=== PATIENT | female | born 1990 | race Caucasian/White ===

== ENCOUNTER 2025-02-02 15:41 | Emergency (ER) | payer SELFPAY ==
[~2025-02-02] VITALS: Ht 165.1 cm; Wt 91.0 kg
[2025-02-02 15:49] VITALS: O2SAT 98
[2025-02-02 17:00] LABS: COLOR URINE YELLOW (YELLOW); GLUCOSE URINE NEGATIVE (NEGATIVE); KETONES URINE TRACE (NEGATIVE); LEUKOCYTE ESTERASE URINE 2+ (NEGATIVE); NITRITE URINE NEGATIVE (NEGATIVE); OCCULT BLOOD URINE TRACE (NEGATIVE); PH URINE 7.5 (4.5-8.0); PROTEIN URINE NEGATIVE (NEGATIVE); SPECIFIC GRAVITY URINE 1.022 (1.005-1.030); UROBILINOGEN URINE 0.2 E.U./dL (0.2-1.0)
[2025-02-02 17:14] LABS: CLARITY URINE SL HAZY (CLEAR)
[2025-02-02 17:15] LABS: BACTERIA URINE 1+; RBC URINE NONE SEEN /hpf (0-2); SQUAMOUS EPITHELIAL CELL URINE 2+ /lpf (RARE/1+)
[2025-02-02 18:34] LABS: BASOPHILS % 0.4 % (0.0-2.0); EOSINOPHILS % 1.2 % (0.0-5.0); HEMATOCRIT. 40.1 % (36.0-48.0); HEMOGLOBIN. 13.4 g/dL (12.0-16.0); LYMPHOCYTES % 19.3 % (20.0-50.0); MEAN PLATELET VOLUME 7.6 fl (7.4-10.4); MONOCYTES % 8.7 % (2.0-8.0); NEUTROPHILS % 70.4 % (40.0-76.0); PLATELET 251 x1000/uL (130-400); RED BLOOD CELL COUNT 4.76 mill/uL (4.2-5.4); RED CELL DISTRIBUTION WIDTH 13.8 % (11.6-14.6)
[2025-02-02 18:46] LABS: CREATININE 0.9 mg/dL (0.6-1.0)
[2025-02-02 18:47] LABS: UREA NITROGEN BLOOD 11 mg/dL (9-23)
[2025-02-02 19:01] LABS: B-HCG QUANTITATIVE 12701 mIU/mL (<6)
[2025-02-02 19:15] VITALS: BP 108/69; PULSE 86; RESP 14; TEMP 36.7; O2SAT 97
[2025-02-02 19:46] LABS: HCG SCREEN POSITIVE
== END 2025-02-02 19:45 | disposition home or self-care (01) ==
LOC: ER 15:41
DX: O03.4 Incomplete spontaneous abortion without complication (principal); Z3A.01 Less than 8 weeks gestation of pregnancy; Z79.899 Other long term (current) drug therapy
CPT/HCPCS: 36415; 76801; 80048; 81003; 84702; 84703; 85025; 86850; 86900; 99284